=== PATIENT | female | born 1980 ===

== ENCOUNTER 2025-01-04 13:34 | Emergency (ER) | payer OTHER ==
[~2025-01-04] VITALS: Ht 170.2 cm; Wt 55.0 kg
[2025-01-04 13:42] VITALS: TEMP 97.8
[2025-01-04 14:11] LABS: PLATELET COUNT (AUTO) 152 K/uL (150-450); RED BLOOD CELL COUNT(AUTO) 3.62 MIL/uL (4.00-5.20); RED CELL DISTRIBUTION WIDTH 18.6 % (11.5-14.5); WHITE BLOOD COUNT (AUTO) 4.1 K/uL (4.5-11.0)
[2025-01-04 14:20] LABS: CALCIUM, TOTAL 8.1 mg/dL (8.8-10.5); CREATININE 0.73 mg/dL (0.60-1.30); GLOMERULAR FILTR. RATE CALC > 60 mL/min (>60); GLUCOSE,RANDOM 89 mg/dL (70-110); SODIUM SERUM 139 mmol/L (136-145); UREA NITROGEN, BLOOD 7 mg/dL (7-18)
[2025-01-04 15:18] VITALS: BP 94/63; PULSE 72; RESP 14; O2SAT 99
[2025-01-04 15:22] LABS: BAND NEUTROPHILS % (MANUAL) 4 % (0-5); EOSINOPHILS % (MANUAL) 15 % (1-6); LYMPHOCYTES % (MANUAL) 32 % (22-44); MONOCYTES % (MANUAL) 4 % (2-9); SEGMENTED NEUTROPHILS % 45 % (40-70)
[2025-01-04 15:23] LABS: PLATELET MORPHOLOGY COMMENT LARGE PLTS PRESENT; RBC MORPHOLOGY COMMENT NORMAL RBC MORPH
== END 2025-01-04 15:20 | disposition short-term general hospital (02) ==
LOC: EMS 13:34
DX: R20.2 Paresthesia of skin (principal); N39.0 Urinary tract infection, site not specified; A02.9 Salmonella infection, unspecified; I46.9 Cardiac arrest, cause unspecified; I50.9 Heart failure, unspecified; I25.2 Old myocardial infarction; Z98.890 Other specified postprocedural states
CPT/HCPCS: 80048; 84703; 85025; 99285